=== PATIENT | female | born 1980 | race Caucasian/White ===

== ENCOUNTER 2020-06-19 09:12 | Day surgery (SDC) | payer OTHER ==
[~2020-06-19] VITALS: Ht 152.4 cm; Wt 83.0 kg
--- NOTE | 2020-06-19 10:32 | NUR ---
06/19/20 1032 Bonnie Dodson PATIENT DETERMINED TO BE ASA APPROPRIATE FOR PROPOFOL SEDATION PRIOR TO START OF PROCEDURE BY DR. GARCIA. MONITOR INTACT WITH CONTINUOUS PULSE OXIMETRY AND INTERMITTENT BP. DURING PROCEDURE.
[2020-06-19] MEDS ORDERED: ESCI10 PO (11:08)
--- NOTE | 2020-06-19 11:11 | NUR ---
SUNSHINE PROCEDURE WELL. DENIES PAIN/NAUSEA. VERBALIZED UNDERSTANDING OF DC INSTRUCTIONS, DC'D IV INTACT. DC VIA WC WITH BELONGINGS.
== END 2020-06-19 23:45 | disposition home or self-care (01) ==
LOC: ORSCMMR 09:12 → ORD 10:15 → ORSCMMR 23:45
PROVIDERS: Internal Medicine Gastroenterology
PROC: 0DBE8ZX Excision of Large Intestine, Via Natural or Artificial Opening Endoscopic, Diagnostic (ICD-10-PCS; principal; 2020-06-19 10:15)
DX: K51.90 Ulcerative colitis, unspecified, without complications (principal); Z79.899 Other long term (current) drug therapy; F17.210 Nicotine dependence, cigarettes, uncomplicated
CPT/HCPCS: 88305; J2250; J2704; J7120